=== PATIENT | female | born 1980 | race Caucasian/White ===

== ENCOUNTER 2022-12-16 11:11 | Emergency (ER) | payer OTHER, SELFPAY ==
[2022-12-16 11:18] VITALS: BP 125/84; PULSE 109; RESP 14; TEMP 36.1; O2SAT 100
--- NOTE | 2022-12-16 11:32 | ED.DENTAL ---
HPI - Dental/Oral General Chief complaint: Dental/Oral Stated complaint: swelling of jaw Time Seen by Provider: 12/16/22 11:32 History of Present Illness HPI Narrative: NO FEVER. NO JAW SWELLING. NO NECK SWELLING. NO LIMITATION WITH SPEAKING OR SWALLOWING. HAS A HISTORY OF DENTAL CARIES. HAS NOT SEEN A DENTIST RECENTLY. Pain to right lower gum Related Data Allergies Allergy/AdvReac Type Severity Reaction Status Date / Time latex Allergy Intermediate RASH Unverified 12/02/14 11:02 adhesive Allergy Unknown RASH Unverified 12/02/14 11:02 codeine Allergy Unknown Verified 05/24/12 11:52 Review of Systems Review of Systems: CONSTITUTIONAL: Denies fever, chills, or sweats. EYES: Denies visual changes, redness, or discharge. ENT: Denies rhinorrhea, congestion, sore throat, or otalgia. NO FEVER. NO JAW SWELLING. NO NECK SWELLING. NO LIMITATION WITH SPEAKING OR SWALLOWING. HAS A HISTORY OF DENTAL CARIES. HAS NOT SEEN A DENTIST RECENTLY. CARDIOVASCULAR: Denies chest pain, palpitations, or edema. RESPIRATORY: Denies cough or dyspnea. GASTROINTESTINAL: Denies abdominal pain, nausea, vomiting, or diarrhea. GENITOURINARY: Denies dysuria or hematuria. SKIN: Denies rash or itching. MUSCULOSKELETAL: Denies back pain, joint pain, or myalgia. NEUROLOGIC: Denies headache, numbness, or weakness. PSYCHIATRIC: Denies anxiety or depression. [facility] Family History Family History (Updated 03/10/16 @ 23:19 by DOCTOR UNKNOWN) Mother Family history of diabetes mellitus in first degree relative Other Family history of malignant neoplasm of esophagus Family history of malignant neoplasm of male breast Social History Social History Alcohol intake: never Comments At time of signature, agree with nursing past medical, surgical, social and family history. There is no relevant family history pertinent to the presenting complaint Exam Narrative: GENERAL: Well-appearing, well-nourished, and in no acute distress. HEAD: Normocephalic, atraumatic. EYES: PERRLA and EOMI. ENT: Nares clear, no rhinorrhea or epistaxis. Mucous membranes moist. NO JENS APICAL SWELLING, TOOTH TENDER TO PALPATION. NO FACIAL SWELLING. NO TRISMUS. ABLE TO OPEN MOUTH FULLY. NO NECK SWELLING OR MANI'S ANGINA. NO ABSCESS TO BE DRAINED. no drooling, trismus, facial asymmetry or significant neck swelling tooth number [id number] NECK: Supple. CHEST: Clear to auscultation. No respiratory distress. HEART: Regular rate and rhythm. No murmur heard. Normal peripheral pulses. ABDOMEN: Soft, nontender, nondistended, normal active bowel sounds. EXTREMITIES: Normal range of motion. No edema. SKIN: Warm, dry, no rash. NEURO: No focal deficits. Alert and oriented x3. Karlee Coma Scale Eye Opening: Spontaneous 4 [place] Coma Scale Motor: Obeys Commands 6 [place] Coma Scale Verbal: Oriented 5 [place] Coma Scale Total 15 Course Course Level of Care: Express Care Visit Vital Signs Vital signs: Vital Signs Temperature 36.1 C L 12/16/22 11:18 Pulse Rate 109 H 12/16/22 11:18 Respiratory Rate 14 12/16/22 11:18 Blood Pressure 125/84 12/16/22 11:18 Pulse Oximetry 100 12/16/22 11:18 Oxygen Delivery Room Air 12/16/22 11:18 Temperature 36.1 C L 12/16/22 11:18 Pulse Rate 109 H 12/16/22 11:18 Respiratory Rate 14 12/16/22 11:18 Blood Pressure 125/84 12/16/22 11:18 Pulse Oximetry 100 12/16/22 11:18 Oxygen Delivery Room Air 12/16/22 11:18 Discharge Plan Discharge Clinical Impression: Dental abscess, Toothache, Dental caries Patient Disposition: Home, Self-Care Condition: Stable Instructions: Antibiotic Form, Toothache (ED) Additional Instructions: Avoid temperature extremes May apply heat or ice to the face Gentle brushing and flossing Antibiotic as directed Tylenol for lesser pain Use ibuprofen regularly Use the medication as provided for severe pain--caution each tablet contains 325 mg of Tylenol--the maximum dose o
== END 2022-12-16 11:40 | disposition home or self-care (01) ==
PROVIDERS: Emergency Provider Nurse Practitioner Family
DX: K04.7 Periapical abscess without sinus (principal); K02.9 Dental caries, unspecified
CPT/HCPCS: 99213; G0463

== ENCOUNTER 2023-08-29 11:43 | Emergency (ER) | payer OTHER, SELFPAY ==
[2023-08-29 11:47] VITALS: BP 133/75; PULSE 103; RESP 16; TEMP 36.8; O2SAT 100
--- NOTE | 2023-08-29 12:02 | ED.EYEPROB ---
HPI - Eye Problem General Chief complaint: Eye Problems Stated complaint: Eyes Source: patient Mode of arrival: ambulatory Limitations: no limitations History of Present Illness HPI Narrative: 43 y/o female presented for c/o bilateral eye redness and swelling over the past 4 days. Symptoms started after using a home 'botox' treatment for lines and wrinkles. She applied a mixture of egg, lemon juice and coffee to the eyes. Has since applied creams without relief. Endorses severe itching and burning with dryness. Denies eye drainage, vision changes, headache, n/v/d/f/c. chief complaint: eye pain Related Data Allergies Allergy/AdvReac Type Severity Reaction Status Date / Time latex Allergy Intermediate RASH Unverified 08/29/23 12:34 adhesive Allergy Unknown RASH Unverified 08/29/23 12:34 codeine Allergy Unknown Unknown Verified 08/29/23 12:34 Review of Systems Review of Systems: CONSTITUTIONAL: Denies body aches, fever, chills EYES:Endorses swelling, redness and pain to eye; FB sensation, photophobia Denies visual changes ENT: Denies rhinorrhea, congestion, sore throat, or otalgia. CARDIOVASCULAR: Denies chest pain, palpitations RESPIRATORY: Denies cough or dyspnea. GASTROINTESTINAL: Denies abdominal pain, nausea, vomiting, or diarrhea. SKIN: Denies rash, itching, or wounds. MUSCULOSKELETAL: Denies back pain, joint pain, or myalgia. NEUROLOGIC: Denies headache, numbness, tingling, or weakness. All systems reviewed & are unremarkable except as noted in HPI and below PMFSH Past Medical History Medical History (Updated 08/29/23 @ 12:32 by Mariangel Poole APRN) Anxiety disorder, unspecified Nicotine dependence, unspecified, uncomplicated Family History Family History Mother Family history of diabetes mellitus in first degree relative Other Family history of malignant neoplasm of esophagus Family history of malignant neoplasm of male breast Social History Social History Alcohol intake: never Comments At time of signature, I have reviewed and agree with nursing past medical, surgical, social and family history unless otherwise noted. Please see nursing chart for further information. There is no relevant family history pertinent to the presenting complaint Exam Narrative: GENERAL: Well-appearing HEAD: Normocephalic, atraumatic. EYES: Bilateral periorbital erythema and swelling, eyes not occluded. below eyes with dried flaky skin; Left conjunctival injection, small amount purulent drainage; PERRLA, EOMI. Lid eversion shows no FB. ENT: Mucous membranes pink and moist. HEART: Regular rate and rhythm. ABDOMEN: Soft, nontender, nondistended SKIN: Warm, dry, no rash. Normal skin turgor. Course Course Emergency Course: Patient is aware of diagnosis, understands and agrees to treatment plan. Anticipatory guidance given. Patient agrees to follow-up as directed and is aware of reasons to seek care at the emergency department. Portions of this record may have been created with voice recognition software Level of Care: Express Care Visit Vital Signs Vital signs: Vital Signs Temperature 98.2 F 08/29/23 11:47 Pulse Rate 103 H 08/29/23 11:47 Respiratory Rate 16 08/29/23 11:47 Blood Pressure 133/75 08/29/23 11:47 Pulse Oximetry 100 08/29/23 11:47 Oxygen Delivery Room Air 08/29/23 11:47 Temperature 98.2 F 08/29/23 11:47 Pulse Rate 103 H 08/29/23 11:47 Respiratory Rate 16 08/29/23 11:47 Blood Pressure 133/75 08/29/23 11:47 Pulse Oximetry 100 08/29/23 11:47 Oxygen Delivery Room Air 08/29/23 11:47 MDM - Eye Problem MDM Narrative Medical decision making narrative: Discussed physical exam findings. Reviewed Rx's. Advised supportive measures and signs/symptoms to go to the ER. Pt is appropriate for outpt treatment and f/u. Differenti
[2023-08-29] MEDS: methylPREDNISolone SOD SUCC 125 MG VIAL IM (12:12)
--- NOTE | 2023-08-29 12:51 | PC.NURSE ---
noted during stay pt reports did not bring eye glasses with her, can't see good at distance, unable to complete eye chart
== END 2023-08-29 12:25 | disposition home or self-care (01) ==
PROVIDERS: Emergency Provider Nurse Practitioner Family
DX: L30.9 Dermatitis, unspecified (principal); H10.32 Unspecified acute conjunctivitis, left eye; F17.200 Nicotine dependence, unspecified, uncomplicated
CPT/HCPCS: 96372; 99213; G0463; J2930

== ENCOUNTER 2024-01-10 19:30 | Emergency (ER) | payer OTHER, SELFPAY ==
[2024-01-10 19:35] VITALS: BP 122/68; PULSE 95; RESP 16; TEMP 37.4; O2SAT 100
--- NOTE | 2024-01-10 19:49 | ED.GENADULT ---
HPI - General Adult General Chief complaint: Dental/Oral Stated complaint: Swelling to Right Jaw Time Seen by Provider: 01/10/24 19:49 Source: patient, RN notes reviewed and old records reviewed Mode of arrival: ambulatory Limitations: no limitations History of Present Illness HPI narrative: 43-year-old female to Express Care for complaint of right lower jaw swelling and pain that started this morning. Patient endorses fracture of lower right molar teeth 6 months ago. Patient does not have a dentist. Patient has not attempted to treat pain at home. Patient denies fever, sore throat, headache, nausea, drainage gums. Related Data Allergies Allergy/AdvReac Type Severity Reaction Status Date / Time latex Allergy Intermediate RASH Verified 01/10/24 19:32 adhesive Allergy Unknown RASH Verified 01/10/24 19:32 codeine Allergy Unknown Unknown Verified 01/10/24 19:32 Review of Systems Review of Systems: All systems reviewed & are unremarkable except as noted in HPI and below Constitutional: Constitutional: Reports no additional constitutional complaints Eyes: Eyes: Reports no additional eye complaints ENT: Reports as per HPI and Reports dental pain ( with right lower jaw swelling) Cardiovascular: Cardiovascular: Reports no additional cardiovascular complaints, Denies chest pain and Denies dyspnea Respiratory: Respiratory: Reports no additional respiratory complaints, Denies cough and Denies dyspnea Musculoskeletal: Musculoskeletal: Reports no additional musculoskeletal complaints Neurologic: Reports system reviewed and no additional complaints, except as documented Psychiatric: Psychiatric: Reports no additional psychiatric complaints PMFSH Past Medical History Medical History Anxiety disorder, unspecified Nicotine dependence, unspecified, uncomplicated Family History Family History Mother Family history of diabetes mellitus in first degree relative Other Family history of malignant neoplasm of esophagus Family history of malignant neoplasm of male breast Social History Social History Alcohol intake: never Comments At the time of my signature, I reviewed and agree with the nursing past medical, surgical, social, and family history. There is no relevant family history pertinent to the patient complaint. Exam Const: General: cooperative, no acute distress, alert, uncomfortable and well nourished Nutritional Appearance: well nourished Orientation/consciousness: patient oriented x3 Limitations: no limitations HENMT: Head: normal to inspection Ears: external ears normal Face/Nose/Sinus: Normal external nose present, Normal nares present, normal facial exam, No erythema and No edema Face and sinus: normal facial exam, no erythema and no edema Mouth: Yes Normal oral and palatal mucosa present Teeth and gingiva: abnormal tooth and associated gingiva lower right second molar tender, with associated gingival edema and dentin fractured and gingiva abnormal hypertrophic and tender Eyes: General: appearance normal, both eyes and all related structures Neck: Neck: normal visual inspection, full ROM and no meningeal signs Lymphatic: no lymphadenopathy noted and no lymphedema noted Chest: Chest palpation & inspection: normal inspection of the chest Resp: Effort & Inspection: normal respiratory effort and able to speak in complete sentences Auscultation: clear to auscultation bilaterally Cardio: Jugular venous distension: no JVD Rate: regular rate Rhythm: regular rhythm Back/Spine/Pelvis: Cervical Spine: cervical ROM normal Skin: General skin exam: normal color, no rashes or lesions noted and turgor normal Neuro: General: patient oriented x3, gait normal, moves all extremities and no meningeal signs Speech: normal speech Gait exam (
== END 2024-01-10 20:00 | disposition home or self-care (01) ==
PROVIDERS: Emergency Provider Nurse Practitioner Family
DX: K04.7 Periapical abscess without sinus (principal); K08.89 Other specified disorders of teeth and supporting structures; S02.5XXA Fracture of tooth (traumatic), initial encounter for closed fracture; X58.XXXA Exposure to other specified factors, initial encounter
CPT/HCPCS: 99213; G0463

== ENCOUNTER 2024-02-26 15:26 | Emergency (ER) | payer OTHER, SELFPAY ==
[2024-02-26 15:28] VITALS: BP 131/86; PULSE 103; RESP 16; TEMP 36.9; O2SAT 100
--- NOTE | 2024-02-26 16:47 | ED.GENADULT ---
HPI - General Adult General Chief complaint: Skin/Abscess/Foreign Body Stated complaint: rash on neck/chest Source: patient Mode of arrival: ambulatory Limitations: no limitations History of Present Illness HPI narrative: Patient presents for evaluation of her pruritic rash to the neck and chest for last 2 days. The day before she had worn some clothing that was washed at a laundromat. She indicates that she recently found out she was allergic to Gain laundry detergent. She is fairly confident that her rash is related to exposure to Gain. She denies any difficulty breathing or swallowing. She tried applying hydrocortisone cream with not a considerable difference in her symptoms thereafter. Related Data Allergies Allergy/AdvReac Type Severity Reaction Status Date / Time latex Allergy Intermediate RASH Verified 02/26/24 15:36 adhesive Allergy Unknown RASH Verified 02/26/24 15:36 codeine Allergy Unknown Unknown Verified 02/26/24 15:36 Review of Systems Review of Systems: CONSTITUTIONAL: Denies fever, chills, or sweats. EYES: Denies visual changes, redness, or discharge. ENT: Denies rhinorrhea, congestion, sore throat, or otalgia. CARDIOVASCULAR: Denies chest pain, palpitations, or edema. RESPIRATORY: Denies cough or dyspnea. GASTROINTESTINAL: Denies abdominal pain, nausea, vomiting, or diarrhea. GENITOURINARY: Denies dysuria or hematuria. SKIN: Reports pruritic rash to the neck and chest MUSCULOSKELETAL: Denies back pain, joint pain, or myalgia. NEUROLOGIC: Denies headache, numbness, dizziness, or weakness. PSYCHIATRIC: Denies anxiety or depression. [facility] Past Medical History Medical History Anxiety disorder, unspecified Nicotine dependence, unspecified, uncomplicated Surgical History Surgical History No pertinent past surgical history Family History Family History Mother Family history of diabetes mellitus in first degree relative Other Family history of malignant neoplasm of esophagus Family history of malignant neoplasm of male breast Social History Social History Smoking packs per day: 0.25 Smoking cigarettes per day: 5.0 Smoking status: Current every day smoker Tobacco type: cigarettes Alcohol intake: never Living arrangements: with family Gender identity (if verbalized by the patient): Female Exam Narrative: GENERAL: Well-appearing, well-nourished, and in no acute distress. HEAD: Normocephalic, atraumatic. EYES: PERRLA and EOMI. ENT: Nares clear, no rhinorrhea or epistaxis. Mucous membranes moist. Oropharynx without tonsillar hypertrophy exudate or other lesions. Bilateral TMs pearly burger nonbulging NECK: Supple. No adenopathy or masses. No carotid bruits or JVD CHEST: Clear to auscultation. No respiratory distress. No wheezes rales or rhonchi HEART: Regular rate and rhythm. No murmur heard. Normal peripheral pulses. ABDOMEN: Soft, nontender, nondistended, normal active bowel sounds. EXTREMITIES: Normal range of motion. No edema. SKIN: There are several raised erythematous wheals to the neck and chest, too numerous to count. NEURO: No focal deficits. Alert and oriented x3. PSYCH: Normal mood and affect. Course Course Emergency Course: This is a 44-year-old female who presented for evaluation of a pruritic rash following exposure to a laundry detergent to which she is allergic. She was given Depo-Medrol here only discharge with prednisone, which she has tolerated well in the past. Also discharge with Vistaril. Increase hydration. Cool cause may help alleviate some of the itching. Follow-up with primary provider. Go to the ER for difficulty breathing or swelling. Patient in agreement with plan of care. Level of Care: Express Care Vis
[2024-02-26] MEDS: methylPREDNISolone ACETATE 80 MG/ML VIAL IM (16:53)
== END 2024-02-26 17:08 | disposition home or self-care (01) ==
PROVIDERS: Emergency Provider Nurse Practitioner
DX: T78.40XA Allergy, unspecified, initial encounter (principal); F17.210 Nicotine dependence, cigarettes, uncomplicated; F41.9 Anxiety disorder, unspecified
CPT/HCPCS: 96372; 99213; G0463; J1010

== ENCOUNTER 2024-03-10 15:21 | Emergency (ER) | payer OTHER, SELFPAY ==
[2024-03-10 15:28] VITALS: BP 138/91; PULSE 104; RESP 20; TEMP 36.7; O2SAT 100
--- NOTE | 2024-03-10 15:40 | ED.GENADULT ---
HPI - General Adult General Chief complaint: Skin/Abscess/Foreign Body Stated complaint: Rash Time Seen by Provider: 03/10/24 15:40 Source: patient, RN notes reviewed and old records reviewed Mode of arrival: ambulatory Limitations: no limitations History of Present Illness HPI narrative: 44-year-old female to [facility] for complaint of red, raised, itchy rash to anterior neck and upper chest, under bilateral breasts, and in left AC for over 2 weeks. Patient states she was seen here February 25 and treated for an allergic reaction with prednisone and hydroxyzine. Patient states that symptoms did temporarily improve but have returned and are worsening. Patient states that she has attempted to treat at home with cold compresses with some relief. Patient also complaining itchy, white, irritating rash to diffuse scalp for several weeks. Patient states that she did not have the provider look at it at her last visit to [facility]. Patient states that she wears her hair up with it wet a lot. Related Data Allergies Allergy/AdvReac Type Severity Reaction Status Date / Time latex Allergy Intermediate RASH Verified 03/10/24 15:38 adhesive Allergy Unknown RASH Verified 03/10/24 15:38 codeine Allergy Unknown Unknown Verified 03/10/24 15:38 Review of Systems Review of Systems: All systems reviewed & are unremarkable except as noted in HPI and below Constitutional: Constitutional: Reports no additional constitutional complaints Eyes: Eyes: Reports no additional eye complaints ENT: Reports system reviewed and no additional complaints, except as documented Cardiovascular: Cardiovascular: Reports no additional cardiovascular complaints, Denies chest pain and Denies dyspnea Respiratory: Respiratory: Reports no additional respiratory complaints, Denies cough and Denies dyspnea Musculoskeletal: Musculoskeletal: Reports no additional musculoskeletal complaints Integumentary/Breasts: Skin/Breast: Reports as per HPI, Reports pruritus and Reports rash Neurologic: Reports system reviewed and no additional complaints, except as documented Psychiatric: Psychiatric: Reports no additional psychiatric complaints PMFSH Past Medical History Medical History Anxiety disorder, unspecified Nicotine dependence, unspecified, uncomplicated Surgical History Surgical History No pertinent past surgical history Family History Family History Mother Family history of diabetes mellitus in first degree relative Other Family history of malignant neoplasm of esophagus Family history of malignant neoplasm of male breast Social History Social History Smoking packs per day: 0.25 Smoking cigarettes per day: 5.0 Smoking status: Current every day smoker Tobacco type: cigarettes Alcohol intake: never Living arrangements: with family Gender identity (if verbalized by the patient): Female Comments At the time of my signature, I reviewed and agree with the nursing past medical, surgical, social, and family history. There is no relevant family history pertinent to the patient complaint. Exam Const: General: cooperative, healthy appearing, no acute distress, alert, uncomfortable and well nourished Nutritional Appearance: well nourished Orientation/consciousness: patient oriented x3 Limitations: no limitations HENMT: Head: normal to inspection Face/Nose/Sinus: Normal external nose present, Normal nares present, normal facial exam, No erythema and No edema Face and sinus: normal facial exam, no erythema and no edema Mouth: Yes Normal oral and palatal mucosa present Throat: posterior oropharynx normal Eyes: General: appearance normal, both eyes and all related structures Neck: Neck: normal visual in
[2024-03-10] MEDS: methylPREDNISolone SOD SUCC 125 MG VIAL IM (16:27)
== END 2024-03-10 16:48 | disposition home or self-care (01) ==
PROVIDERS: Emergency Provider Nurse Practitioner Family
DX: B35.0 Tinea barbae and tinea capitis (principal); L30.4 Erythema intertrigo; F17.210 Nicotine dependence, cigarettes, uncomplicated
CPT/HCPCS: 96372; 99213; G0463; J2919